=== PATIENT | male | born 1985 | race Caucasian/White ===

== ENCOUNTER 2020-03-27 17:42 | Emergency (ER) | payer SELFPAY ==
--- NOTE | 2020-03-27 18:08 | NUR ---
ATTEMPTED TO PROVIDE CLIENT WITH DISCHARGE INFORMATION AND REFERRAL TO [facility] FOR PRIMARY CARE. CLIENT REFUSE TO SPEAK TO [facility] CONCERNING REFERRAL AND WAS UPSET BECAUSE WE WOULD NOT FILL HIS EMMERGENCY INHALER. [facility] ADVISED CLIENT THAT HE WAS NOT IN ACUTE ILNESS THEREFORE HE DID NOT HAVE AN EMERGENT CONDITION AND THEREFORE NEEDED TO FOLLOW UP WITH PRIMARY CARE.
== END 2020-03-27 18:16 | disposition home or self-care (01) ==
LOC: ER 17:42
DX: Z76.0 Encounter for issue of repeat prescription (principal)
CPT/HCPCS: 99281